=== PATIENT | male | born 1945 | race Caucasian/White ===

== ENCOUNTER 2019-12-24 09:01 | Outpatient (REF) | payer MEDICARE, SELFPAY ==
[2019-12-24 11:13] LABS: MANUAL DIFF FLAG NO
[2019-12-24 11:17] LABS: Basophils Percent Auto 0.6 % (0-2); Eosinophils Absolute Auto 0.2 X10*3/uL (0.0-0.4); Eosinophils Percent Auto 3.7 % (0-4); Hematocrit 41.6 % (42-52); Hemoglobin 14.1 g/dl (14.0-18.0); Imm Gran Abs Auto 0.02 X10*3/uL (0.00-0.03); Imm Gran Pct Auto 0.4 % (0.0-0.4); Lymphocytes Absolute Auto 1.5 X10*3/uL (1.2-4.9); Lymphocytes Percent Auto 32.6 % (20-40); Mean Corpuscular HGB Conc 33.9 g/dl (31.0-36.0); Mean Corpuscular Hemoglobin 32.3 pg (27.0-33.0); Mean Corpuscular Volume 95.4 fL (80-98); Mean Platelet Volume 9.8 fL (9.4-12.4); Monocytes Absolute Auto 0.4 X10*3/uL (0.1-1.2); Monocytes Percent Auto 9.5 % (2-11); Neutrophils Absolute Auto 2.5 X10*3/uL (2.0-8.3); Neutrophils Percent Auto 53.2 % (45-73); Platelet Count 241 X10*3/uL (160-400); Red Blood Count 4.36 X10*6/uL (4.60-5.80); Red Cell Distribution Width 11.7 % (11.0-16.0); White Blood Count 4.6 X10*3/uL (4.8-10.8)
[2019-12-24 11:49] LABS: Alanine Aminotransferase 15 U/L (0-40); Albumin Level 4.4 g/dL (3.5-5.0); Alkaline Phosphatase 58 U/L (39-117); Anion Gap 15 (12-20); Aspartate Amino Transferase 18 U/L (5-37); Bilirubin Total 1.5 mg/dL (0.0-1.0); Blood Urea Nitrogen 15 mg/dL (9-16); Calcium 8.4 mg/dL (8.4-10.2); Carbon Dioxide 25 mmol/L (22-29); Chloride 103 mmol/L (96-108); Cholesterol 209 mg/dL; Estimated Glomerular Filt Rate > 60; Glucose Fasting 85 mg/dL (60-99); HDL Cholesterol 45 mg/dL; LDL Cholesterol Calculated 136 mg/dl; Potassium 4.5 mmol/l (3.3-5.1); Sodium 138 mmol/L (135-145); Total Protein 7.1 g/dL (6.5-8.0); Triglycerides 140 mg/dL
[2019-12-24 12:14] LABS: Prostate Specific Antigen 4.96 ng/mL (<0.05-4.0); Vitamin D 25-OH Total 21.9 ng/mL (>30)
== END 2019-12-24 09:02 | disposition home or self-care (01) ==
LOC: HO.MANLDS 09:01
PROVIDERS: PCP Internal Medicine; Visit Provider Internal Medicine
DX: Z00.00 Encounter for general adult medical examination without abnormal findings (principal); Z12.5 Encounter for screening for malignant neoplasm of prostate
CPT/HCPCS: 36415; 80053; 80061; 82306; 84153; 85025

== ENCOUNTER 2021-02-07 09:35 | Outpatient (REF) | payer MEDICARE, SELFPAY ==
[2021-02-07 11:03] LABS: Hematocrit 41.7 % (42.0-52.0); Hemoglobin 14.4 g/dl (14.0-18.0); Mean Corpuscular HGB Conc 34.5 g/dl (31.0-36.0); Mean Corpuscular Hemoglobin 32.3 pg (27.0-33.0); Mean Corpuscular Volume 93.5 fL (80.0-98.0); Platelet Count 229 X10*3/uL (160-400); Red Blood Count 4.46 X10*6/uL (4.60-5.80); Red Cell Distribution Width 11.6 % (11.0-16.0); White Blood Count 4.3 X10*3/uL (4.8-10.8)
[2021-02-07 11:39] LABS: Alanine Aminotransferase 17 U/L (0-40); Albumin Level 4.5 g/dL (3.5-5.0); Alkaline Phosphatase 53 U/L (39-117); Anion Gap 14 (12-20); Aspartate Amino Transferase 20 U/L (5-37); Bilirubin Total 1.6 mg/dL (0.0-1.0); Blood Urea Nitrogen 16 mg/dL (9-16); Calcium 9.7 mg/dL (8.4-10.2); Carbon Dioxide 28 mmol/L (22-29); Chloride 102 mmol/L (96-108); Cholesterol 219 mg/dL; Estimated Glomerular Filt Rate > 60; Glucose Fasting 89 mg/dL (60-99); HDL Cholesterol 45 mg/dL; LDL Cholesterol Calculated 146 mg/dl; Potassium 3.9 mmol/L (3.3-5.1); Sodium 140 mmol/L (135-145); Total Protein 7.3 g/dL (6.5-8.0); Triglycerides 141 mg/dL
[2021-02-07 12:05] LABS: Prostate Specific Antigen 5.79 ng/mL (<0.05-4.0)
== END 2021-02-07 09:36 | disposition home or self-care (01) ==
LOC: HO.MANLDS 09:35
PROVIDERS: PCP Internal Medicine; Visit Provider Internal Medicine
DX: Z12.5 Encounter for screening for malignant neoplasm of prostate (principal); I10 Essential (primary) hypertension; E78.1 Pure hyperglyceridemia
CPT/HCPCS: 36415; 80053; 80061; 84153; 85027

== ENCOUNTER 2021-06-08 09:34 | Outpatient (REF) | payer MEDICARE, SELFPAY ==
[2021-06-08 11:40] LABS: Uric Acid 5.7 mg/dL (3.4-7.0)
== END 2021-06-08 09:35 | disposition home or self-care (01) ==
LOC: HO.MANLDS 09:34
PROVIDERS: PCP Physician Assistant; Visit Provider Physician Assistant
DX: M79.645 Pain in left finger(s) (principal)
CPT/HCPCS: 36415; 84550

== ENCOUNTER 2022-05-21 09:29 | Outpatient (REF) | payer MEDICARE, SELFPAY ==
[2022-05-21 11:31] LABS: MANUAL DIFF FLAG NO
[2022-05-21 11:55] LABS: Basophils Percent Auto 0.8 % (0-2); Eosinophils Absolute Auto 0.2 X10*3/uL (0.0-0.4); Hematocrit 41.6 % (42.0-52.0); Hemoglobin 14.2 g/dl (14.0-18.0); Imm Gran Abs Auto 0.01 X10*3/uL (0.00-0.03); Imm Gran Pct Auto 0.3 % (0.0-0.4); Lymphocytes Absolute Auto 1.2 X10*3/uL (1.2-4.9); Lymphocytes Percent Auto 32.2 % (20-40); Mean Corpuscular HGB Conc 34.1 g/dl (31.0-36.0); Mean Corpuscular Hemoglobin 31.8 pg (27.0-33.0); Mean Corpuscular Volume 93.1 fL (80.0-98.0); Mean Platelet Volume 10.1 fL (9.4-12.4); Monocytes Absolute Auto 0.4 X10*3/uL (0.1-1.2); Neutrophils Absolute Auto 1.9 x10*3/uL (2.0-8.3); Neutrophils Percent Auto 51.7 % (45-73); Platelet Count 214 X10*3/uL (160-400); Red Blood Count 4.47 X10*6/uL (4.60-5.80); Red Cell Distribution Width 11.9 % (11.0-16.0); White Blood Count 3.6 X10*3/uL (4.8-10.8)
[2022-05-21 12:31] LABS: Alanine Aminotransferase 20 U/L (0-40); Albumin Level 4.2 g/dL (3.5-5.0); Alkaline Phosphatase 57 U/L (39-117); Anion Gap 11 (12-20); Aspartate Amino Transferase 22 U/L (5-37); Bilirubin Total 1.7 mg/dL (0.0-1.0); Blood Urea Nitrogen 14 mg/dL (9-16); Calcium 9.2 mg/dL (8.4-10.2); Carbon Dioxide 29 mmol/L (22-29); Chloride 105 mmol/L (96-108); Cholesterol 207 mg/dL; Estimated Glomerular Filt Rate > 60; Glucose Random 88 mg/dL (60-115); HDL Cholesterol 45 mg/dL; LDL Cholesterol Calculated 146 mg/dl; Potassium 4.2 mmol/L (3.3-5.1); Sodium 141 mmol/L (135-145); Total Protein 6.7 g/dL (6.5-8.0); Triglycerides 80 mg/dL
[2022-05-27 14:13] LABS: Free Prostate Spec Ag 1.2 ng/mL; Percent Free Prostate Spec Ag 21 % (calc) (>25); Prostate Specific Ag Total 5.8 ng/mL (< OR = 4.0)
== END 2022-05-21 09:30 | disposition home or self-care (01) ==
LOC: HO.MANLDS 09:29
PROVIDERS: Visit Provider Internal Medicine
DX: Z00.00 Encounter for general adult medical examination without abnormal findings (principal); Z13.6 Encounter for screening for cardiovascular disorders; Z12.5 Encounter for screening for malignant neoplasm of prostate; R53.83 Other fatigue; K92.1 Melena; Z86.2 Personal history of diseases of the blood and blood-forming organs and certain disorders involving the immune mechanism
CPT/HCPCS: 36415; 80053; 80061; 84154; 85025

== ENCOUNTER 2024-04-23 10:19 | Outpatient (REF) | payer MEDICARE, SELFPAY ==
--- OUTSIDE RECORDS SUMMARY | 2024-04-23 11:36 | XMS_ITS | Data Portability ---
Author Organization [facility] Address [address] [place] [address] Assessment No assessment recorded. Plan of Treatment Reminders Order Date Submit Date Provider Last Modified By Organization Details Last Modified Time Details Appointments NEW PROBLEM 15 2024 10:00A M STEPHANIE ROJAS Not available Not available Not available Lab PSA, serum or plasma 2024 025 [facility], [address] [place] [address], [id number], 04/23/2024 10:14:27 amylase + lipase, serum 2024 025 [facility], [address] [place] [address], [id number], 04/23/2024 10:14:28 thyroid peroxidas e (tpo) Ab, serum 2024 025 [facility], [address] [place] [address], [id number], 04/23/2024 10:14:28 gamma-glu tamyl transfera se (ggt), serum 2024 025 [facility], [address] [place] [address], [id number], 04/23/2024 10:14:28 anaplasma phagocyto philum + ehrlichia chaffeens is IgG + IgM panel, serum 2024 025 [facility], [address] [place] [address], [id number], 04/23/2024 10:14:28 magnesium , QN, serum or plasma 2024 025 [facility], [address] [place] [address], [id number], 04/23/2024 10:14:27 urinalysi s complete, reflex culture 2024 025 [facility], [address] [place] [address], [id number], 04/23/2024 10:14:27 CBC w/ auto diff 2024 025 [facility], [address] [place] [address], [id number], 04/23/2024 10:14:28 CMP, serum or plasma 2024 025 [facility], [address] [place] [address], [id number], 04/23/2024 10:14:27 TSH + free T4, serum 2024 025 [facility], [address] [place] [address], [id number], 04/23/2024 10:14:27 ESR (erythroc yte sedimenta tion rate), blood 2024 025 [facility], [address] [place] [address], [address], 04/23/2024 10:14:27 iron + TIBC + ferritin, serum 2024 025 [facility], [address] [place] [address], [address], 04/23/2024 10:14:27 vitamin D, 25-hydrox y, total, serum 2024 025 [facility], [address] [place] [address], [address], 04/23/2024 10:14:28 vitamin B12 + folate, serum or blood 2024 025 [facility], [address] [place] [address], [address], 04/23/2024 10:14:28 C-reactiv e protein, quantitat john, serum or plasma 2024 025 [facility], [address] [place] [address], [id number], 04/23/2024 10:14:28 lyme disease igg+igm, serum, reflex western blot 2024 025 [facility], [address] [place] [address], [address], 04/23/2024 10:14:27 PTH (parathyr oid hormone), intact + calcium, serum or plasma 2024 025 [facility], [address] [place] [address], [address], 04/23/2024 10:14:27 hemoglobi n A1c, QN, blood 2024 025 [facility], [address] [place] [address], [id number], 04/23/2024 10:13:06 urinalysi s complete, reflex culture 2022 023 [facility], [address] [place] [address], [address], 01/29/2023 06:47:51 Referral None recorded. Procedures None recorded. Surgeries None recorded. Imaging US, echocardi ogram 2024 025 [facility], [address] [place], [address], 04/23/2024 10:36:58 Medication Orders lisinopri l 10 mg tablet 2024 025 [id number], [address], [place], [id number], 04/23/2024 10:01:54 hydrochlo rothiazid e 25 mg tablet 2024 025 [facility] #[id number], [address], [place], [id number], 04/23/2024 10:01:53 ciproflox acin 500 mg tablet 2022 024 [facility] #[id number], [address], [place], [id number], 10/08/2023 14:10:25 Patient TargetsNo targets recorded. Patient InstructionsNo instructions recorded. Reason for Referral None Reported. Results Created Date Observation Date Name Description Value Unit Range Abnormal Flag Note LastModifiedBy Organization Detail LastModifiedTime 01/29/2001/28/2023 urina lysis , dipst ick Leukocytes Small Not Available [facility] [address] [place] [address], [place], [address], 01/28/2023 14:50:47 01/29/20 23 01/28/2023 urina lysis , dipst ick Nitrite negati ve Not Available [facility] [address] [place] [address] D, [place], [address], 01/28/2023 14:50:47 01/29/20 23 01/28/2023 urina lysis , dipst ick Urobilinogen .2 Not Available [facility] [address] [place] [address] D, [place], [address], 01/28/2023 14:50:47 01/29/20 23 01/28/2023 urina lysis , dipst ick Protein Negati ve Not Available [facility] [address] [facility] [address], [place], [address], 01/28/2023 14:50:47 01/29/20 23 01/28/2023 urina lysis , dipst ick pH 6.[address] [facility] [address] [facility] [address], [place], [address], 01/28/2023 14:50:47 01/29/20 23 01/28/2023 urina lysis , dipst ick Blood Negati ve Not Available [facility] [address] [facility] [address], [place], [address], 01/28/2023 14:50:47 01/29/20 23 01/28/2023 urina lysis , dipst ick Specific Uehling 1.[address] [facility] [address] [facility] [address], [place], [address], 01/28/2023 14:50:47 01/29/20 23 01/28/2023 urina lysis , dipst ick Ketone Negati ve Not Available [facility] [address] [facility] [address], [place], [address], 01/28/2023 14:50:47 01/29/20 23 01/28/2023 urina lysis , dipst ick Bilirubin Negati ve Not Available [facility] [address] [facility] [address], [place], [address], 01/28/2023 14:50:47 01/29/20 23 01/28/2023 urina lysis , dipst ick Glucose Negati ve Not Available [facility] [address] [facility] [address], [place], [address], 01/28/2023 14:50:47 01/29/20 23 01/28/2023 urina lysis , dipst ick Appearance Clear Not Available [facility] [address] [facility] [address], [place], [address], 01/28/2023 14:50:47 01/29/2001/28/2023 urina lysis , dipst ick Color Dark Yellow Not Available [facility] [address] [facility] [address], [place], [address], 01/28/2023 14:50:47 Result Notes None recorded. Problems Name Problem SNOMED Code Status Onset Date Resolution Date Notes Provider Name and Address Organization Details Recorded Time Prostate specific antigen above reference range 835345015 Active 2018 Not Available [facility] 14:21:13 Hypertrig lyceridem ia 032183535 Active 2018 Not Available [facility] 14:21:13 Hypertens john disorder 48440622 Active 2018 Not Available [facility] 1 14:21:13 Gilbert's syndrome 46133554 Active 2018 Not Available [facility] 1 14:21:13 Pain in left thumb 777288981445 9100 Active 2021 STEPHANIE ROJAS [address] [place], [address], [facility] [place] 2 09:27:23 Radial styloid tenosynov itis 07208386 Active 2021 STEPHANIE ROJAS [address] [place], [address], [facility] [place] 2 11:40:07 Rupture of tendon of biceps 928603719 Active 2022 STEPHANIE ROJAS [address] [place], [address], [facility] [place] 3 10:44:13 Rupture of tendon of biceps 234107959 Active 2022 STEPHANIE ROJAS [address] [place], [address], [facility] [place] 3 10:44:25 Injury of tendon of the rotator cuff of shoulder 347020082 Active 2022 STEPHANIE ROJAS [address] [place], [address], [facility] [place] 3 10:46:43 Dysuria 49057499 Active 2022 STEPHANIE ROJAS [address] [place], [address], [facility] [place] 3 13:47:12 Fatigue 48846389 Active 2024 STEPHANIE ROJAS [address] [place], [address], [facility] [place] 5 10:04:05 Asthenia 96691985 Active 2024 STEPHANIE ROJAS [address] [place], [address], [facility] [place] 5 10:05:02 Unexplain ed weight loss 474733788 Active 2024 STEPHANIE ROJAS [address] [place], [address], [facility] [place] 5 10:07:03 Problem Notes None recorded. Procedures Surgical History Date Name Laterality Status Provider Name and Address Organization Details Recorded Time 5 Colonoscopy completed Chelsie Chin [facility] 04/19/2019 14:17:18 Imaging Results None recorded. Procedure Notes None recorded. Medical Equipment None Reported. Allergies Allergen ID Allergen Name Allergen Category Reaction Reaction Severity Criticality Documentation Date Start Date Code Code System Note Provider Name and Address Organization Details Recorded Time 3064 Iodinated contrast media (substanc e) medicatio n Not available Not available Not available 07/07/2018 15635 2003 SNOMED Milly rodriguez [facility] 9 08:52:21 3065 oxycodone medicatio n Not available Not available Not available 07/07/2018 7804 RxNorm Milly rodriguez [facility] 9 08:52:34 Medications Name Sig Start Date Stop Date Status Note LastModified by Organization Details LastModified Time doxycycline hyclate 100 mg capsule TK 1 C PO BID FOR 10 DAYS 12/30 completed Not Available Not Available Not Available fluconazole 150 mg tablet TAKE 1 TABLET BY MOUTH EVERY DAY FOR 3 DAYS 10/07 completed Not Available Not Available Not Available valacyclovi r 1 gram tablet Take 1 tablet 3 times a day by oral route for 5 days. 04/19 completed Not Available Not Available Not Available fluconazole 200 mg tablet Take 1 tablet every day by oral route for 3 days. 08/22 completed Not Available Not Available Not Available meloxicam 15 mg tablet TAKE 1 TABLET BY MOUTH EVERY DAY WITH MEALS FOR 15 DAYS 04/24 completed Not Available Not Available Not Available Pyridium 200 mg tablet Take 1 tablet 3 times a day by oral route as needed for 5 days. 10/07 completed Not Available Not Available Not Available ciprofloxac in 500 mg tablet TAKE 1 TABLET BY MOUTH EVERY 12 HOURS FOR 7 DAYS 10/07 completed Not Available Not Available Not Available amoxicillin 500 mg tablet Take 1 tablet every 8 hours by oral route with meals for 5 days. 08/22 completed Not Available Not Available Not Available ofloxacin 0.3 % ear drops APPLY 5 DROP INTO AFFECTED EAR TWICE A DAY 12/30 completed Not Available Not Available Not Available clotrimazol e-betametha sone 1 %-0.05 % topical cream APPLY TO THE AFFECTED AND SURROUNDI NG AREAS OF SKIN BY TOPICAL ROUTE 2 TIMES PER DAY IN THE MORNING AND EVENING FOR 2 WEEKS 08/22 completed Not Available Not Available Not Available lisinopril 10 mg tablet TAKE 1 TABLET BY MOUTH ONCE DAILY 2024 active Not Available Not Available Not Avai lable hydrochloro thiazide 25 mg tablet Take 1 tablet by mouth once a day 2024 active Not Available Not Available Not Avai lable amoxicillin 875 mg-potassiu m clavulanate 125 mg tablet Take 1 tablet every 12 hours by oral route for 10 days. 11/21 completed Not Available Not Available Not Available amoxicillin 500 mg-potassiu m clavulanate 125 mg tablet Take 1 tablet every 12 hours by oral route for 7 days. 11/02 completed Not Available Not Available Not Available moxifloxaci n 0.5 % eye drops INSTILL 1 DROP INTO THE OPERATIVE EYE THREE TIMES DAILY STARTING 1 DAY PRE OP AND CONTINUE 7 DAYS POST OP 10/07 completed Not Available Not Available Not Available flaxseed oil qd active Not Available Not Available Not Available Vitamin D3 5,000 U once a week 10/07 completed Not Available Not Available Not Available Multivitami n 50 Plus 10/07 completed Not Available Not Available Not Available peg 3350-electr olytes 236 gram-22.74 gram-6.74 gram-5.86 gram solution 11/02 completed Not Available Not Available Not Available Prolensa 0.07 % eye drops INSTILL 1 DROP IN THE OPERATIVE EYE ONCE DAILY FOR 21 DAYS. START 1 DAY PRE OP 10/07 completed Not Available Not Available Not Available PreserVisio n AREDS-2 qd active Not Available Not Available No t Available Fluzone High-Dose Quad (PF) 240 mcg/0.7 mL IM syringe ADM 0.7ML IM UTD 12/30 completed Not Available Not Available Not Available Vitals Date Recorded Body height Body mass index (BMI) Body weight Heart rate Oxygen saturation Oxygen saturation in Arterial blood by Pulse oximetry Systolic blood pressure Diastolic blood pressure Provider Name and Address Organization Details Last Updated DateTime 3 162.56 cm 26.3 kg/m2 38251.6 3 g 79 /min 97 % 97 % 120 mm[Hg] 70 mm[Hg] Sissy Jackson [facility] 3 10:20:24 Date Recorded Body height Body mass index (BMI) Body weight Heart rate Oxygen saturation Oxygen saturation in Arterial blood by Pulse oximetry Systolic blood pressure Diastolic blood pressure Provider Name and Address Organization Details Last Updated DateTime 3 162.56 cm 25.6 kg/m2 09742.2 6 g 87 /min 99 % 99 % 142 mm[Hg] 81 mm[Hg] Cherrie Kee [facility] 3 14:47:52 Date Recorded Body height Body mass index (BMI) Body weight Systolic blood pressure Diastolic blood pressure Provider Name and Address Organization Details Last Updated DateTime 04/30/2023 162.56 cm 25.6 kg/m2 79097.26 g 140 mm[Hg] 76 mm[Hg] Sissy Jackson [facility] 4 13:26:25 Date Recorded Body height Body mass index (BMI) Body weight Heart rate Oxygen saturation Oxygen saturation in Arterial blood by Pulse oximetry Systolic blood pressure Diastolic blood pressure Provider Name and Address Organization Details Last Updated DateTime 4 162.56 cm 25 kg/m2 73632.7 7 g 66 /min 98 % 98 % 126 mm[Hg] 64 mm[Hg] Shahnazheena Gandara [facility] 4 14:12:06 Date Recorded Body height Body mass index (BMI) Body weight Heart rate Oxygen saturation Oxygen saturation in Arterial blood by Pulse oximetry Systolic blood pressure Diastolic blood pressure Provider Name and Address Organization Details Last Updated DateTime 5 162.56 cm 24.9 kg/m2 17527.8 9 g 92 /min 98 % 98 % 142 mm[Hg] 82 mm[Hg] Shahnaz [facility] 5 09:55:02 Social History Question Answer Notes LastModified by Organizat ion Details LastModified Time Tobacco Smoking Status Never Smoker Not Available [facility] 12/28/2019 03:36:24 What Was The Date Of Your Most Recent Tobacco Screening? 04/23/2024 [email or web address] Information not available 04/23/2024 Do You Or Have You Ever Used Any Other Forms Of Tobacco Or Nicotine? No [email or web address] Information not available 04/24/2022 Sex: Unknown Functional Status None recorded. Mental Status None recorded. Family History Nothing Reported. Medical History No medical history recorded. Immunizations Vaccine Type Date Status Note Provider Nam e and Address Organization Details Recorded Time Influenza, split virus, quadrivalent, preservative 01/16/20 21 completed Perez Garvey DO [address] [place] [address], [address], [facility] [place] 01/17/2021 07:59:05 Influenza, split virus, quadrivalent, preservative 11/25/19 18 completed Not Available [facility] 11/14/2020 16:40:06 COVID-19, mRNA, LNP-S, PF, 30 mcg/0.3 mL dose 01/25/20 21 completed Perez Garvey DO [address] [place] [address], [address], [facility] [place] 01/25/2021 14:31:35 influenza, unspecified formulation 12/07/19 22 completed Perez Garvey DO [address] [place] [address], [address], [facility] [place] 04/24/2022 11:25:23 Influenza, split virus, quadrivalent, preservative 10/28/19 19 completed Not Available [facility] 11/14/2020 16:40:05 Influenza, split virus, quadrivalent, preservative 11/22/19 20 completed Not Available [facility] 11/14/2020 16:40:05 zoster, unspecified formulation 01/07/20 20 completed Not Available [facility] 11/14/2020 16:40:05 Tdap 01/07/20 20 completed Not Available [facility] 11/14/2020 16:40:06 zoster recombinant 04/06/19 21 completed Not Available [facility] 11/14/2020 16:40:05 COVID-19, mRNA, LNP-S, PF, 100 mcg/0.5mL dose or 50 mcg/0.25mL dose 06/21/19 21 completed Not Available [facility] 11/14/2020 16:40:06 pneumococcal polysaccharide PPV23 03/02/19 16 completed Not Available [facility] 11/14/2020 16:40:06 COVID-19, mRNA, LNP-S, PF, 100 mcg/0.5mL dose or 50 mcg/0.25mL dose 05/23/19 21 completed Not Available [facility] 11/14/2020 16:40:06 Past Encounters Encounter ID Performer Location Encounter Start Date Encounter Closed Date Diagnosis/Indication Diagnosis SNOMED-CT Code Diagnosis ICD10 Code Diagnosis Note Perez Garvey DO [facility] [address] [place] [address],[place] [address] 07/07/2018 13:24:07 07/07/2018 13:58:13 Hypertensive disorder 26759239 I10 excellent control no change in meds. Herpes zoster 2719358 B0 2.9 for the scalp breakouts and in his oral mucosa Tick bite 65900712 W57.X XXA [id number] Perez Garvey [facility] [address] [facility],[place] [facility] [place] [address] 04/19/2019 13:53:43 04/19/2019 15:15:59 Active or passive immunization 329637960 Z23 Hepatitis C screening 41 5149940 Z11.59 Tinea corporis 75652224 B35.[id number] [facility] [address] [facility], [place] [address] 07/28/2019 10:03:44 07/28/2019 11:48:51 Acute sinusitis 30908547 J01.90 combinatio n of acute sinusitis with blocked sinuses on top of an acute otitis media Acute otitis media 97680 03 H66.91 will treat for 7 days based on the extent of which the patient states is having symptoms he will take a probiotic and with food and let us know if he is having an issue with the medication [id number] [facility] [address] [place] [address], [place] [facility] [address] 08/23/2019 10:53:44 08/23/2019 12:21:48 Acute otitis media 4946285 H66.91 the patient is still having difficulty with the right ear will try stronger antibiotic if no improvemen t with refer to ENT [id number] [facility] [address], [place] [address] 11/03/2019 11:51:00 11/03/2019 13:24:46 Acute otitis media 3374954 H66.91 sending to ENT due to recurrent nature of the infection also will send in script for aug in the meantime as well as have him take probiotic Hypertensive disorder 38 501479 I10 BP is excellent today will continue to monitor [id number] [facility] [address] [place] [address], [place] [address] 11/22/2019 14:20:01 11/22/2019 15:58:21 Adult health examination 325573116 Z00.00 Chronic ot itis externa 02129377 H60.[id number] [facility] [address],[place] [address] 12/31/2019 14:37:13 12/31/2019 16:14:05 Acute otitis media 9642440 H66.91 awaiting input from ent next visit Bursitis o f olecranon of left elbow 6379026490 69187 M70.22 will cont conserv cared Hypertensive disorder 38 670561 I10 excellent control no change in meds. [id number] Perez Garvey [facility] [address] [facility],[place] [address] 06/20/2020 13:20:00 06/20/2020 14:05:30 Hypertriglyceridemia 940667977 E78.1 will be checked next lab Hypertensive disorder 38 906362 I10 excellent control no change in meds. Prostate s pecific antigen above reference range 284311973 R97.20 no longer an issue per dr tubbs will follow as necess Atrophic gastritis 23940 007 K29.40 [id number] [facility] [address] [place] [address],[place] [address] 10/16/2020 14:16:53 10/16/2020 14:50:32 Rupture of tendon of biceps 740435000 M66.822 will fu with an orthopedic fu to discuss options for surgery [id number] Perez Garvey [facility] [address] [facility],[place] [address] 11/21/2020 08:13:25 11/21/2020 15:06:06 Hypertensive disorder 23591994 I10 excellent control no change in meds. Hypertriglyceridemia 302 890832 E78.1 will be checked next lab Atrophic gastritis 25667 007 K29.40 stable per EGD and inactive also some mild duodenal peptic changes no ulcer all per recent EGD Rupture of tendon of biceps, long head 57167235 S46.112D has decided not to repair and is slowly gaining strength [id number] [facility] [address] [facility], [place] [address] 02/28/2021 09:00:20 02/28/2021 14:44:03 Gilbert's syndrome 65196992 E80.4 stable Hypertriglyceridemia 302 534970 E78.1 stable Prostate s pecific antigen above reference range 876871132 R97.20 stable [id number] [facility] [address] [place] [address] 06/08/2021 09:07:26 06/12/2021 16:21:24 Pain in left thumb 2419973845 294624 M79.645 fu with uric acid and XR [id number] [facility] [address] [place] [address] 04/24/2022 11:21:02 04/24/2022 12:17:50 Adult health examination 490704580 Z00.00 Screening for cardiovascular system disease 470698581 Z13.6 Hypertensive disorder 38 206164 I10 excellent control no change in meds. [id number] STEPHANIE ROJAS [address] [address] 08/30/2022 10:16:11 08/30/2022 15:21:39 Rupture of tendon of biceps 215817213 M66.822 finished PT Radial sty loid tenosynovitis 51902278 M65.4 finished PTusing braces as suggested and monitoring Injury of tendon of the rotator cuff of shoulder 605804430 S46.012A will continue with PT, arya chi, pilates Hypertensive disorder 38 591862 I10 BP is excellent today will continue to monitor [id number] STEPHANIE ROJAS [facility] [address] [place] [address] 01/28/2023 14:35:09 01/29/2023 08:22:08 Acute urinary tract infection 603682480 N10 [id number] [address] [facility] [address] [place] [address] 04/30/2023 13:19:22 04/30/2023 16:30:22 Pre-surgery evaluation 662754701 Z01.818 The patient was seen in the office today for pre-op evaluation . All medical conditions on patient's problem list were addressed and are currently stable, no interventi on needed at this time. Based on history and physical performed, the patient is cleared for surgery. [id number] STEPHANIE ROJAS [facility] [address] [facility] [address],[place] [address] 10/08/2023 14:04:09 10/08/2023 14:39:44 Depression screening 994500106 Z13.31 SCREENING NEGATIVE Hypertensive disorder 38 455006 I10 BP is excellent today will continue to monitor [id number] STEPHANIE ROJAS [facility] [address] [facility] [address],[place] [address] 04/23/2024 09:47:22 04/23/2024 10:17:06 Essential hypertension 82324845 I10 Hypertensive disorder 38 444673 I10 stable Fatigue 26686109 R53.83 will set up with fu screening, r/o cardiovasc ular, endocrinol ogical, infectious process given broad symptomato logy Asthenia 22876795 R53.1 Unexplaine d weight loss 668728695 R63.4 Health Concerns Section Related Observation LastModified by Organization Detai ls LastModified Time None Recorded Concern Status LastModified by Organization Details LastModified Time None Recorded Advance Directives Directive None Recorded Payers Encounter Date Sequence Insurance Name Policy Number Policy Reyes Covered Member ID Reyes Member ID Guarantor Name 08/30/2022 2 [place] [id number] Bart Lynn [id number] Bart P Stack 08/30/2022 1 [place] [employer] Bart P Stack [id number] Bart P Stack 01/28/2023 2 [place] [id number] Bart Lynn [id number] 12 Bart P Stack 01/28/2023 1 [place] [employer] Bart P Stack [id number] Bart P Stack 04/30/2023 2 [place] [id number] Bart Shane [id number] 12 Bart P Stack 04/30/2023 1 [place] [employer] Bart P Stack [id number] 2 Bart P Stack 10/08/2023 2 [place] [id number] Bart Lynn [id number] 12 Bart Lynn 10/08/2023 1 [place] [facility] GOVERNMENT SERVICES Bart Lynn [id number] 2 Bart Lynn 04/23/2024 2 [place] [id number] Bart Lynn [id number] 12 Bart Lynn 04/23/2024 1 [place] [facility] GOVERNMENT SERVICES Bart Lynn [id number] 2 Bart Lynn Notes Date Note Type Note Provider Name a nd Address Organization Details Recorded Time 3 text/html f/u tendinitis left shoulder has the h/x of the rupture which we are already aware of of the bicep muscle left sidemost likely has a tendinitis and partial tearing of his rotator cuff as it compensates for the bicep discussed continuing therapy on his shoulderis going to pick remover arya chi which I think is a wonderful idea to gently strengthening his muscles over time discussed being more cognizant of what he is lifting STEPHANIE ROJAS [address] [place], [address], [facility], [place], operated by [facility] 08/30/2022 10:53:21 3 text/html c/o UTI UTI symptoms with frequency, burning sensationleuks on dipwill send out urine for final testingwill start on cipro STEPHANIE ROJAS [address] [place], [address], [facility], [place], operated by [facility] 01/28/2023 15:00:23 4 text/html Pre-OpReported bypatient.Surgery to be Performed:bilateral eye cataract surgery with Dr. Dubose at [facility] Context/Condition Being Addressed:cataracts Location:bilateral eye cataracts, left first then right Severity:moderate; poor light time vision Risk Factorsno cognitive impairment; no functional impairment; no malnutrition; no frailty; able to climb a flight of stairs (exercise capacity>4 METS); no obstructive sleep apnea; non-smoker; no alcohol misuse; no illicit drug use; not obese;chronic cardiopulmonary condition(HTN: stable) Anesthesia hx:no hx of anesthesia complications; no allergy to anesthetic agents; no family history of anesthesia complications Functional Ability:able to walk up stairs; able to perform heavy work around the house; no difficulty walking up hills; able to walk 4 mph Post-Op Support:adequate assistance at home (KENY) STEPHANIE ROJAS [address] [place], [address], [facility], [place], operated by [facility] 04/30/2023 13:40:10 4 text/html f/u medication check cataract: the patient is doing well after the cataract surgeryhad to have the left eye corrected due to the lens being off center no issues since the surgery, does have a fu end of this week to check a red spot on his eyes The patient denies recent falls or recurrent falls. Denies instability, weakness, abnormal gait, or difficulties with movement. The patient wears correct, supportive shoes and is not otherwise severely visually impaired. The patient is full weight bearing and if using the assistance of a cane or walker feels supported and stable with the use of such devices. All medical conditions have been taken into account that may pose a risk for the patient for falls. Home markie, carpets and/or rugs do not pose a challenge for the patient. The patient has been educated about the use of vitamin D supplementation for bone health and prevention of hypotensive episodes that may increase risk for fall. All question and concerns were answered to the patient's satisfaction. the patient reports for the past decade he has occasionally has had times were he feels weakness throughout his whole body, lasts for a few seconds then clears upthe patient reports reports it is related to when he is a bit more gassywith gas pressure on the chestalready had a cardiac work up during this that was negative?vagal response to excess gas build up in the epigastric areas, triggers a response due to it?arrhythmia possible, though less likely given the amount of time it has been going on without being noted otherwise nothing else going onfeels very good HTN: today in the office the patient BP is 126/64 L arm the patient is doing well on the BP medication with no side effects and no adjustment of their medications needed today at the appointment well-controlled on medication denies chest pain, sob, ankle swelling, orthopnea, palpitations STEPHANIE ROJAS [address] [place], [address], [facility], [place], operated by [facility] 10/08/2023 14:34:44 5 text/html c/o weak and weight loss the patient reports that he is having more fatigue, weak, losing weight, muscle mass the patient reports that this happened back about 30ish years ago, the patient reports they didn't find a cause, and he improved quickly the patient is down to 145 pounds, was 155 pounds at his normal weightthe patient is noticing skin changes, crepe like skin the patient denies any other symptoms at this timeno GI symptoms, no fever, no bodyaches, no numbness or tingling, no urinary symptoms, no chest or palpitations will set up with full screen STEPHANIE ROJAS [address] [facility], [place], [address], [facility], [place], operated by [facility] 04/23/2024 10:17:05
--- OUTSIDE RECORDS SUMMARY | 2024-04-23 11:36 | XMS_ITS | Continuity of Care Document ---
Author Organization [place] - [facility], [facility] Address [address] [facility] [place] [address] Assessment No assessment recorded. Plan of Treatment Reminders Order Date Submit Date Provider Last Modified By Organization Details Last Modified Time Details Appointments NEW PROBLEM 15 2024 10:00A M STEPHANIE ROJAS Not available Not available Not available Lab PSA, serum or plasma 2024 025 [facility], [address] [place] [address], [id number], 04/23/2024 10:14:27 amylase + lipase, serum 2024 025 [facility], [address] [place] [address], [id number], 04/23/2024 10:14:28 thyroid peroxidas e (tpo) Ab, serum 2024 025 [facility], [address] [place] [address], [id number], 04/23/2024 10:14:28 gamma-glu tamyl transfera se (ggt), serum 2024 025 [facility], [address] [place] [address], [id number], 04/23/2024 10:14:28 anaplasma phagocyto philum + ehrlichia chaffeens is IgG + IgM panel, serum 2024 025 [facility], [address] [place] [address], [id number], 04/23/2024 10:14:28 magnesium , QN, serum or plasma 2024 025 [facility], [address] [place] [address], [id number], 04/23/2024 10:14:27 urinalysi s complete, reflex culture 2024 025 [facility], [address] [place] [address], [id number], 04/23/2024 10:14:27 CBC w/ auto diff 2024 025 [facility], [address] [place] [address], [id number], 04/23/2024 10:14:28 CMP, serum or plasma 2024 025 [facility], [address] [place] [address], [id number], 04/23/2024 10:14:27 TSH + free T4, serum 2024 025 [facility], [address] [place] [address], [id number], 04/23/2024 10:14:27 ESR (erythroc yte sedimenta tion rate), blood 2024 025 [facility], [address] [place] [address], [id number], 04/23/2024 10:14:27 iron + TIBC + ferritin, serum 2024 025 [facility], [address] [place] [address], [id number], 04/23/2024 10:14:27 vitamin D, 25-hydrox y, total, serum 2024 025 [facility], [address] [place] [address], [place], [address], 04/23/2024 10:14:28 vitamin B12 + folate, serum or blood 2024 025 [facility], [address] [place] [address], [id number], 04/23/2024 10:14:28 C-reactiv e protein, quantitat john, serum or plasma 2024 025 [facility], [address] [place] [address], [id number], 04/23/2024 10:14:28 lyme disease igg+igm, serum, reflex western blot 2024 [facility], [address] [place] [address], [id number], 04/23/2024 10:14:27 PTH (parathyr oid hormone), intact + calcium, serum or plasma 2024 025 [facility], [address] [place] [address], [place], [id number], 04/23/2024 10:14:27 hemoglobi n A1c, QN, blood 2024 [facility], [address] [place] [address], [id number], 04/23/2024 10:13:06 Referral None recorded. Procedures None recorded. Surgeries None recorded. Imaging US, echocardi ogram 2024 [facility], [address] [place], [address], 04/23/2024 10:36:58 Medication Orders lisinopri l 10 mg tablet 2024 [id number], [address] [place] [address], [id number], 04/23/2024 10:01:54 hydrochlo rothiazid e 25 mg tablet 2024 025 [id number], [address] [place], [place], [id number], 04/23/2024 10:01:53 Patient TargetsNo targets recorded. Patient InstructionsNo instructions recorded. Reason for Referral None Reported. Problems Name Problem SNOMED Code Status Onset Date Resolution Date Notes Provider Name and Address Organization Details Recorded Time Prostate specific antigen above reference range 311193705 Active 2018 Not Available [facility] 14:21:13 Hypertrig lyceridem ia 738666499 Active 2018 Not Available [facility] 14:21:13 Hypertens john disorder 25806149 Active 2018 Not Available [facility] 14:21:13 Gilbert's syndrome 33770298 Active 2018 Not Available [facility] 14:21:13 Pain in left thumb 546490474167 9100 Active 2021 STEPHANIE ROJAS [address] [place] [address], [phone], [facility] 2 09:27:23 Radial styloid tenosynov itis 93061156 Active 2021 STEPHANIE ROJAS [address] [place] [address], [address], [facility] 2 11:40:07 Rupture of tendon of biceps 151278663 Active 2022 STEPHANIE ROJAS [address] [place] [address], [address], [facility] 3 10:44:13 Rupture of tendon of biceps 694044858 Active 2022 STEPHANIE ROJAS [address] [place] [address], [address], [facility] 3 10:44:25 Injury of tendon of the rotator cuff of shoulder 801097049 Active 2022 STEPHANIE ROJAS [address] [place], [address], [facility] 3 10:46:43 Dysuria 20342096 Active 2022 STEPHANIE ROJAS [address] [place], [address], [facility] 3 13:47:12 Fatigue 45368515 Active 2024 STEPHANIE ROJAS [address] [place], [address], [facility] 5 10:04:05 Asthenia 99147674 Active 2024 STEPHANIE ROJAS [address] [place], [address], [facility] 5 10:05:02 [facility] 632203882 Active 2024 STEPHANIE ROJAS [address] [place], [address], [facility] 5 10:07:03 Problem Notes None recorded. Procedures Surgical History Date Name Laterality Status Provider Name and Address Organization Details Recorded Time 5 Colonoscopy completed Chelsie Chin [facility] 04/19/2019 14:17:18 Imaging Results None recorded. Procedure Notes None recorded. Medical Equipment None Reported. Allergies Allergen ID Allergen Name Allergen Category Reaction Reaction Severity Criticality Documentation Date Start Date Code Code System Note Provider Name and Address Organization Details Recorded Time 3064 Iodinated contrast media (substanc e) medicatio n Not available Not available Not available 07/07/2018 70369 2004 [facility] 08:[facility]21 3065 oxycodone medicatio n Not available Not available Not available 07/07/2018 7804 RxNorm Milly rodriguez [facility] 9 08:52:34 Medications Name Sig Start [...] Updated DateTime 5 162.56 cm 24.9 kg/m2 72109.8 9 g 92 /min 98 % 98 % 142 mm[Hg] 82 mm[Hg] Shahnaz Gandara [facility] 5 09:55:02 Social History Question Answer Notes LastModified by Organizat ion Details LastModified Time Tobacco Smoking Status Never Smoker Not Available [facility] 12/28/2019 03:36:24 What Was The Date [...] virus, quadrivalent, preservative 01/16/20 21 completed Perez Garvey, [address] [facility], [place], [address], [facility] 01/17/2021 07:59:05 Influenza, split virus, quadrivalent, preservative 11/25/19 18 completed Not Available [facility] 11/14/2020 16:40:06 COVID-19, mRNA, LNP-S, PF, 30 mcg/0.3 mL dose 01/25/20 21 completed Perez Garvey DO [address] [place] [address], [address], [facility] 01/25/2021 14:31:35 influenza, unspecified formulation 12/07/19 22 completed Perez Garvey DO [address] [place] [address], [address], [facility] 04/24/2022 11:25:23 Influenza, split virus, quadrivalent, preservative 10/28/19 19 completed Not Available [facility] 11/14/2020 16:40:05 Influenza, split virus, quadrivalent, preservative 11/22/19 20 completed Not Available [facility] 11/14/2020 16:40:05 zoster, unspecified formulation 01/07/20 20 completed Not Available [facility] 11/14/2020 16:40:05 Tdap 01/07/20 20 completed Not Available [facility] 11/14/2020 16:40:06 zoster recombinant 04/06/19 21 completed Not Available [facility] 11/14/2020 16:40:05 COVID-19, mRNA, LNP-S, PF, 100 mcg/0.5mL dose or 50 mcg/0.25mL dose 06/21/19 21 completed Not Available [facility] 11/14/2020 16:40:06 pneumococcal polysaccharide PPV23 03/02/19 16 completed Not Available [facility] 11/14/2020 16:40:06 COVID-19, mRNA, LNP-S, PF, 100 mcg/0.5mL dose or 50 mcg/0.25mL dose 05/23/19 21 completed Not Available [facility] 11/14/2020 16:40:06 Past Encounters Encounter ID Performer Location Encounter Start Date Encounter Closed Date Diagnosis/Indication Diagnosis SNOMED-CT Code Diagnosis ICD10 Code Diagnosis Note [id number] STEPHANIE ROJAS [facility] [address] [facility] [address] 04/23/2024 09:47:22 04/23/2024 10:17:06 Essential hypertension 22323790 I10 Hypertensive disorder 38 572622 I10 stable Fatigue 25538364 R53.83 will set up with fu screening, r/o cardiovasc ular, endocrinol ogical, infectious process given broad symptomato logy Asthenia 18815258 R53.1 Unexplaine d weight loss 764775630 R63.4 Health Concerns Section Related Observation LastModified by Organization Detai ls LastModified Time None Recorded Concern Status LastModified by Organization Details LastModified Time None Recorded Payers Encounter Date Sequence Insurance Name Policy Number Policy Reyes Covered Member ID Reyes Member ID Guarantor Name 04/23/2024 2 [place] [id number] Bart Lynn [id number] Bart Lynn 04/23/2024 1 [place] [employer] Bart Lynn [id number] 2 Bart Lynn Notes Date Note Type Note Provider Name a nd Address Organization Details Recorded Time 04/23/2024 text/html c/o weak and weight loss the [...] up with full screen STEPHANIE ROJAS [address] [facility], [place], [address], [facility] 04/23/2024 10:17:05
[2024-04-23 13:37] LABS: MANUAL DIFF FLAG NO
[2024-04-23 13:42] LABS: Basophils Percent Auto 0.7 % (0-2); Eosinophils Absolute Auto 0.1 X10*3/uL (0.0-0.4); Eosinophils Percent Auto 2.9 % (0-4); Hematocrit 41.4 % (42.0-52.0); Hemoglobin 14.5 g/dl (14.0-18.0); Imm Gran Abs Auto 0.02 X10*3/uL (0.00-0.03); Imm Gran Pct Auto 0.5 % (0.0-0.4); Lymphocytes Absolute Auto 1.1 X10*3/uL (1.2-4.9); Lymphocytes Percent Auto 25.9 % (20-40); Mean Corpuscular Hemoglobin 32.7 pg (27.0-33.0); Mean Corpuscular Volume 93.5 fL (80.0-98.0); Monocytes Absolute Auto 0.3 X10*3/uL (0.1-1.2); Monocytes Percent Auto 7.7 % (2-11); Neutrophils Absolute Auto 2.8 x10*3/uL (2.0-8.3); Neutrophils Percent Auto 62.3 % (45-73); Platelet Count 256 X10*3/uL (160-400); Red Blood Count 4.43 X10*6/uL (4.60-5.80); Red Cell Distribution Width 11.8 % (11.0-16.0); White Blood Count 4.4 X10*3/uL (4.8-10.8)
[2024-04-23 13:49] LABS: Appearance Urine Clear; Color Urine Yellow; Glucose Urine UA Negative (Negative); Leukocyte Esterase Urine Negative (Negative); Nitrite Urine Negative (Negative); PH 6.5 (5.0-9.0); Specific Gravity - Urine 1.015 (1.005-1.025); Urine Blood Negative (Negative); Urine Ketones Negative (Negative); Urine Protein Negative (Neg-Trace)
[2024-04-23 13:51] LABS: Estimated Average Glucose 108 mg/dL; Hemoglobin A1C 134.0109 umol/L; Hemoglobin A1c % 5.4 % (<6.0); Total Hemoglobin (HGBA1C) 3826.2236 umol/L
[2024-04-23 14:18] LABS: Alanine Aminotransferase 25 U/L (0-40); Albumin Level 4.4 g/dL (3.5-5.0); Alkaline Phosphatase 74 U/L (39-117); Amylase 65 U/L (28-100); Anion Gap 11 (12-20); Aspartate Amino Transferase 28 U/L (5-37); Bilirubin Total 1.2 mg/dL (0.0-1.0); Blood Urea Nitrogen 14 mg/dL (9-16); C Reactive Protein < 0.10 mg/dL (< or = 0.50); Calcium 9.6 mg/dL (8.4-10.2); Carbon Dioxide 30 mmol/L (22-29); Chloride 103 mmol/L (96-108); Estimated Glomerular Filt Rate > 60; Gamma Glutamyl Transpeptidase 27 U/L (11-51); Glucose Random 104 mg/dL (60-115); Iron 111 mcg/dL (45-160); Magnesium 2.1 mg/dL (1.6-2.6); Percent Iron Saturation 39 % (15-50); Potassium 3.8 mmol/L (3.3-5.1); Sodium 140 mmol/L (135-145); Total Iron Binding Capacity 285 mcg/dL (228-428); Total Protein 7.8 g/dL (6.5-8.0); Unsaturated Iron Binding 174 ug/dL
[2024-04-23 14:27] LABS: Erythrocyte Sedimentation Rate 10 MM/HR (0-15); Ferritin 346 ng/mL (20-250); Parathyroid Hormone Intact 58.1 pg/mL (8.7-77.1); Thyroid Stimulating Hormone 2.07 uIU/mL (0.32-4.0)
[2024-04-23 14:40] LABS: Prostate Specific Antigen 7.84 ng/mL (<0.05-4.0)
[2024-04-23 14:47] LABS: Vitamin B12 262 pg/mL (200-900)
[2024-04-23 14:55] LABS: T4 Thyroxine 6.7 ug/dL (4.5-12.0)
[2024-04-26 20:03] LABS: A. Phagocytophilum Ab IgG <1:64 (<1:64); A. Phagocytophilum Ab IgM <1:20 (<1:20); E. Chaffeensis Ab IgG <1:64 (<1:64); E. Chaffeensis Ab IgM <1:20 (<1:20)
[2024-04-26 20:58] LABS: Thyroid Peroxidase Antibodies 63 IU/mL (<9)
[2024-04-26 21:44] LABS: Lyme Abs Screen <0.90 index
[2024-04-28 18:04] LABS: VITAMIN D (1,25 OH) D3 37 pg/mL; Vit D (1,25-Dihydroxy) Total 37 pg/mL (18-72); Vitamin D (1,25 OH) D2 <8 pg/mL
== END 2024-04-23 10:20 | disposition home or self-care (01) ==
LOC: HO.MANLDS 10:19
PROVIDERS: Visit Provider Physician Assistant
DX: R53.83 Other fatigue (principal); Z12.5 Encounter for screening for malignant neoplasm of prostate; R53.1 Weakness; R63.4 Abnormal weight loss; Z13.1 Encounter for screening for diabetes mellitus
CPT/HCPCS: 36415; 80053; 81003; 82150; 82607; 82652; 82728; 82977; 83036; 83540; 83735; 83970; 84153; 84436; 84443; 85025; 85652; 86140; 86376; 86617; 86618; 86666